=== PATIENT | male | born 1970 | race Caucasian/White ===

== ENCOUNTER 2017-01-26 08:09 | Day surgery (SDC) | payer BC ==
[2017-01-26] MEDS ORDERED: Lactated Ringers 1,000 ML IV SCH (09:15)
[2017-01-26] MEDS ORDERED: fentaNYL 100 MCG/2 ML SDV IV ONE (09:15)
[2017-01-26] MEDS ORDERED: Midazolam 1 MG/ML 2 ML SDV IV ONE (09:15)
[2017-01-26] MEDS ORDERED: Lidocaine 2% 100 MG/5 ML Syringe IVPUSH ONE (09:15)
[2017-01-26] MEDS ORDERED: Propofol 200 MG/20 ML SDV IV ONE (09:15)
[2017-01-26] MEDS ORDERED: Simethicone Drops 40 MG/0.6 ML 30 ML Bottle ONE (09:20)
[2017-01-26 10:28] VITALS: BP 129/87
--- NOTE | 2017-01-26 12:59 | OR ---
DATE OF OPERATION: 01/26/2017 SURGEON: James Lewis MD PROCEDURE PERFORMED: Colonoscopy with hot loop snare biopsy. PREOPERATIVE DIAGNOSIS: Personal history of colon polyps. POSTOPERATIVE DIAGNOSIS: Polyp descending colon. INDICATIONS FOR PROCEDURE: This is a 46-year-old, white male, with a personal history of colon polyps, here for his five year followup. He was offered and accepted same. DESCRIPTION OF OPERATION: After an excellent IV sedation was administered. The bite digital rectal exam was performed. No marked abnormality was noted. The flexible colonoscope was inserted and advanced without difficulty to the patient's cecum. The prep was excellent. The following findings were noted. Ascending colon, unremarkable. Transverse colon, unremarkable. Descending colon, a small polypoid lesion biopsied with the hot loop snare and sent for permanent. Sigmoid and rectum unremarkable. The colon was deflated, scope was removed. The patient tolerated the procedure well, and was taken to recovery room in good condition. /[id number] BEN/PAULO
== END 2017-01-26 11:00 | disposition home or self-care (01) ==
LOC: FB.SDS 08:09
PROVIDERS: ATTEND Surgery
DX: Z86.010 Personal history of colon polyps (principal); D12.4 Benign neoplasm of descending colon; H40.1190 Primary open-angle glaucoma, unspecified eye, stage unspecified; G47.33 Obstructive sleep apnea (adult) (pediatric); Z87.891 Personal history of nicotine dependence
CPT/HCPCS: 45385; 88305; A9270; J2250; J2704; J3010; J7120

== ENCOUNTER 2022-06-29 07:02 | Day surgery (SDC) | payer BC, OTHER ==
[~2022-06-29 07:02] MED LIST: Lactated Ringers 1,000 ML IV SCH; Sodium Chloride 0.9% 10 ML Syringe FLUSH PRN
[2022-06-29] MEDS ORDERED: Midazolam 1 MG/ML 2 ML SDV IV ONE (07:03)
[2022-06-29] MEDS ORDERED: Propofol 200 MG/20 ML SDV IV ONE (07:03)
[2022-06-29 13:34] VITALS: BP 107/65; PULSE 68
== END 2022-06-29 09:57 | disposition home or self-care (01) ==
LOC: FB.SDS 07:02
PROVIDERS: ATTEND Surgery
DX: Z12.11 Encounter for screening for malignant neoplasm of colon (principal); K57.30 Diverticulosis of large intestine without perforation or abscess without bleeding; K42.9 Umbilical hernia without obstruction or gangrene; Z86.010 Personal history of colon polyps; Z80.0 Family history of malignant neoplasm of digestive organs; Z79.899 Other long term (current) drug therapy; Z98.890 Other specified postprocedural states; Z87.891 Personal history of nicotine dependence
CPT/HCPCS: 00811-QZ; J2250; J2704; J7120